=== PATIENT | male | born 1960 | race Caucasian/White ===

== ENCOUNTER 2017-08-03 02:05 | Emergency (ER) | payer BC ==
--- NOTE | 2017-08-03 02:15 | ED.PDOC ---
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 YEAR HAD A NORMAL STRESS TEST HE HAS NO KNOWN CORONARY RISK FACTORS HIS FATHER OD COLON CANCER Timing/Duration: just prior to arrival Possible Cause: no prior episodes, unknown cause Improving Factors: nothing Worsening Factors: nothing Associated Symptoms: denies symptoms Allergies/Adverse Reactions: Allergies NO KNOWN ALLERGY Allergy (Verified 08/03/17 02:19) Home Medications: Ambulatory Orders Fexofenadine-Pseudoephedrine [Luz Elena-D 12 Hour Allergy 60-120 mg] 1 tab PO Q12HR 10 Days tab 08/03/17 Methylprednisolone [Medrol Dose Epifanio] 4 mg PO QAM 7 Days tab 08/03/17 Review of Systems - Review of Systems Constitutional: States: no symptoms reported EENTM: States: no symptoms reported Respiratory: States: cough, short of breath Cardiology: States: no symptoms reported Gastrointestinal/Abdominal: States: no symptoms reported Genitourinary: States: no symptoms reported Musculoskeletal: States: no symptoms reported Skin: States: no symptoms reported Neurological: States: no symptoms reported Endocrine: States: no symptoms reported Family Medical History - Family History Father Living Status: Cause of : colon ca Physical Exam - Physical Exam General Appearance: Comfortable Eye Exam: bilateral normal ENT Exam: normal ENT inspection, hearing grossly normal, TMs normal, pharynx normal Neck: non-tender, full range of motion, supple Respiratory: chest non-tender, lungs clear, normal breath sounds, no respiratory distress Cardiovascular/Chest: normal peripheral pulses, regular rate, rhythm, no edema, no gallop, no JVD, no murmur Gastrointestinal/Abdominal: normal bowel sounds, non tender, soft Extremity: normal range of motion, non-tender, normal inspection, no pedal edema , no calf tenderness 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 as tested, no motor/sensory deficits, normal mood/ affect, oriented x 3 Progress - Results/Orders Results/Orders: PT LAB DATA ALL NORMAL HE WAS GIEN A BREATHING TREATMENT WITH BOTH PRE AND POST PEAK FLOW PRE 525 POST 550 FELT BETTER AFTER THE TREATMENT PLAN GIVE DECADRON 10 MG IM NOW & AND MEDROL DOSEPAK SUGGEST TO FOLLOW UP WITH YOUR PCP - EKG/XRAY/CT EKG: Sinus, no ST T wave changes Comments: NSR NO ACUTE ISCHEMIC CHANGES NORMAL AXIS - Consult/PCP Time Called: 02:45 Departure - Departure Clinical Impression: Upper respiratory infection, Sinusitis Time of Disposition: 04:46 Disposition: Discharge to Home or Self Care Departure Forms: ED Discharge - Pt. Copy, Patient Portal Self Enrollment Diet: regular diet Activity: walking as tolerated Home Medications: Ambulatory Orders Fexofenadine-Pseudoephedrine [Luz Elena-D 12 Hour Allergy 60-120 mg] 1 tab PO Q12HR 10 Days tab 08/03/17 Methylprednisolone [Medrol Dose Epifanio] 4 mg PO QAM 7 Days tab 08/03/17
[2017-08-03] MEDS ORDERED: ASPIRIN TABLET 325 MG TAB PO ONE (02:20)
[2017-08-03] MEDS ORDERED: LORazepam 0.5 MG TAB PO ONE (02:23)
--- NOTE | 2017-08-03 03:08 | RAD ---
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 No pneumothorax or pleural effusion. The cardiomediastinal silhouette is within normal limits. Impression: No focal airspace disease. Electronically signed by: Larry Quispe MD 08/03/2017 3:06 AM RETAIL BUSINESS ANALYST
[2017-08-03] MEDS ORDERED: IPRATROPIUM/ALBUTEROL 3 ML VIAL NEB ONE (03:31)
[2017-08-03] MEDS ORDERED: DEXAMETHASONE INJ 10 MG/ML VIAL IM ONE (04:30)
[2017-08-03 05:14] VITALS: BP 113/75; TEMP 97.6; O2SAT 99
== END 2017-08-03 05:00 | disposition home or self-care (01) ==
LOC: ER 02:05
DX: J06.9 Acute upper respiratory infection, unspecified (principal); J32.9 Chronic sinusitis, unspecified
CPT/HCPCS: 36415; 71010; 80048; 82550; 82553; 83880; 84484; 85025; 85379; 85610; 85730; 93005; 94640; 94760; J1100; J7620